=== PATIENT | female | born 1940 | race African-American/Black ===

== ENCOUNTER → 2017-08-10 | Day surgery (SDC) | payer OTHER ==
[2017-08-06 15:17] LABS: BASOPHILS % 0.3 % (0.0-1.0); EOSINOPHILS # (AUTO) 0.3 (0.0-0.4); HEMATOCRIT 35.2 % (34.2-44.1); HEMOGLOBIN 11.5 g/dL (12.0-16.0); LYMPHOCYTES # (AUTO) 1.8 (1.0-3.2); MEAN CORPUSCULAR HEMOGLOBIN 29.9 pg (28-32); MEAN CORPUSCULAR HGB CONC 32.7 g/dL (31-35); MEAN CORPUSCULAR VOLUME 91.7 fL (81-99); MONOCYTES # (AUTO) 0.7 (0.2-0.8); MONOCYTES % 11.8 % (4.4-11.3); NEUTROPHILS # (AUTO) 3.2 (2.1-6.9); NEUTROPHILS % 52.7 % (38.7-80.0); PLATELET COUNT 254 x10e3/uL (140-360); RED BLOOD COUNT 3.84 x10e6/uL (3.6-5.1); RED CELL DISTRIBUTION WIDTH 13.4 % (11.7-14.4)
[2017-08-06 15:33] LABS: ANION GAP 12.6 mmol/L (8-16); BLOOD UREA NITROGEN 16 mg/dL (7-26); BUN/CREATININE RATIO 15 (6-25); CALCIUM 9.5 mg/dL (8.4-10.2); CARBON DIOXIDE 28 mmol/L (22-29); CHLORIDE 104 mmol/L (98-107); CREATININE, SERUM 1.04 mg/dL (0.57-1.11); EST GLOMERULAR FILTRATION RATE > 60 ML/MIN (60-); GLUCOSE 78 mg/dL (74-118); POTASSIUM 4.6 mmol/L (3.5-5.1); SODIUM 140 mmol/L (136-145)
--- NOTE | 2017-08-06 16:41 | Diagnostic Imaging Report ---
PROCEDURE: X-RAY CHEST, TWO VIEWS COMPARISON: None. INDICATIONS: Preop. FINDINGS: LUNGS: The diaphragms are flat. No consolidations or edema. No mass. PLEURA: No effusions or pneumothorax. HEART \T\ MEDIASTINUM: The heart is within normal size-limits. The descending thoracic aorta is ectatic. BONES \T\ SOFT TISSUES: Mild scoliosis of the thoracolumbar spine with superimposed endplate degenerative changes. No focal osseous lesions. Soft tissues are unremarkable.. CONCLUSION: Pulmonary hyperinflation consistent with COPD. No acute cardiopulmonary process. Dictated by: Colleen Barbosa M.D. on 08/06/2017 at 16:44 Electronically approved by: Colleen Barbosa M.D. on 08/06/2017 at 16:44
[~2017-08-10] MED LIST: ASPIR 8181 MG PO; CEFAZOLIN SOD 2 GM/D5W 50ML 50 ML IV ONE; DEXAMETHASONE SOD PHOS INJ 4 MG/ML VIAL ONE; FENTANYL CITRATE/PF 100MCG/2 ML INJ ONE; GABAPENTIN100 MG PO; HYDROCHLOROTHIA25 MG PO; LIDOCAINE HCL 1% LOCAL INJ 20 ML VIAL ONE; LIDOCAINE HCL 2% LOCAL INJ 5 ML SDV VIAL INJ ONE; LORATADINE10 MG PO; LOSARTAN POTASS25 MG PO; MELOXICAM7.5 MG PO; MIDAZOLAM HCL 2 MG/2 ML VIAL ONE; ONDANSETRON HCL INJ 2 MG/ML VIAL ONE; PAROXETINE HCL20 MG PO; PROPOFOL IV EMULSION 10 MG/ML 20 ML VIAL ONE; SEVOFLURANE INHAL SOLN 250 ML PEN BTL ONE
--- OUTSIDE RECORDS SUMMARY | 2017-08-10 10:19 | XMS REPORT | Clinical Summary ---
Author Author [facility] Organization [facility] Address Unknown Phone Unavailable Care Team Providers Care Client [employer] Specialist Name Role Phone Nilton Veliz MD PCP Allergies Active Allergy Reactions Severity Noted Date Comments Penicillins Rash High 07/28/2016 Pt has a rash from zosyn Current Medications Prescription Sig. Disp. Refills Start End Date Status Date hydroCHLOROthiazide Take 25 mg by mouth once 0 07/10/19 Active (HYDRODIURIL) 25 MG daily. 17 tablet lidocaine-prilocaine Apply 1 application 07/17/19 Active (EMLA) 2.5-2.5 % cream topically 3 (three) times 17 a day. FOLIC Take 1 tablet by mouth Active ACID/MULTIVIT-MIN/LUTEIN every morning. (CENTRUM SILVER ORAL) [id number] Take 500 mg by mouth Active o-ast (MEGARED OMEGA-3 every morning. KRILL OIL) 691-826-12-64 mg capsule traMADol (ULTRAM) 50 mg Take 1 tablet (50 mg 30 tablet 0 08/03/19 tablet total) by mouth every 6 17 17 (six) hours as needed for moderate pain for up to 10 days. clindamycin (CLEOCIN) 300 Take 1 capsule (300 mg 30 capsule 0 08/13/19 MG capsule total) by mouth 3 (three) 17 17 times a day for 10 days. Active Problems Problem Noted Date Hypertension 08/01/2016 Bandemia 08/01/2016 Cellulitis of buttock, right 07/21/2016 Immunizations Name Dates Previously Given Next Due Tdap 07/21/2016 Social History Tobacco Use Types Packs/Day Years Used Date Never Smoker Alcohol Use Drinks/Week oz/Week Comments No Sex Assigned at Date Recorded Not on file Last Filed Vital Signs Not on file Plan of Treatment Health Maintenance Due Date Last Done Comments BREAST CANCER SCREENING 1992 COLON CANCER SCREENING 1992 SHINGRIX VACCINE (#1) 1992 ZOSTER VACCINE 2002 PNEUMOCOCCAL 07/02/2007 POLYSACCHARIDE VACCINE AGE 65 AND OVER PNEUMOCOCCAL-13 07/02/2007 INFLUENZA VACCINE 10/06/2017 Results Not on fileafter 08/09/2016 Insurance Payer Benefit Subscriber ID Type Phone Address Plan / Group [employer] xxxxxxxxx [facility] Home:
--- OUTSIDE RECORDS SUMMARY | 2017-08-10 10:19 | XMS REPORT ---
Author Author [facility] Address Unknown Phone Unavailable Care Team Providers Care Pari Mutuel Clerk Name Role Phone MAX TIRADO Unavailable Unavailable Problems This patient has no known problems. Allergies, Adverse Reactions, Alerts This patient has no known allergies or adverse reactions. Medications This patient has no known medications. Results Test Description Test Time Test Comments Text Results Atomic Results Result Comments CHEST 2 VIEWS [place] [address] Patient Name: SAHIL PINO MR #: [id number] : 1940 Age/Sex: 77/F Req #: [id number] Adm Physician: Ordered by: MAX TIRADO MD Report #: [id number] Location: OR Room/Bed: Procedure: DX/CHEST 2 VIEWS Exam Date: 08/06/17 Exam Time: 154 REPORT STATUS: Signed PROCEDURE: X-RAY CHEST, TWO VIEWS COMPARISON: None. INDICATIONS: Preop. FINDINGS: LUNGS: The diaphragms are flat. No consolidations or edema. No mass. PLEURA: No effusions or pneumothorax. HEART T MEDIASTINUM: The heart is within normal size-limits. The descending thoracic aorta is ectatic. BONES T SOFT TISSUES: Mild scoliosis of the thoracolumbar spine with superimposed endplate degenerative changes. No focal osseous lesions. Soft tissues are unremarkable.. CONCLUSION: Pulmonary hyperinflation consistent with COPD. No acute cardiopulmonary process. Dictated by: Alina Barbosa M.D. on 08/06/2017 at 16:44 Electronically approved by: Alina Barbosa M.D. on 08/06/2017 at 16:44 Dictated By: ALINA BARBOSA MD Transcribed By: DANNIE on 08/06/174 COPY TO: MAX TIRADO MD
--- NOTE | 2017-08-10 15:47 | Operative Report ---
DATE OF PROCEDURE: August 10, 2017 PREOPERATIVE DIAGNOSIS: Left breast mass. POSTOPERATIVE DIAGNOSIS: Left breast mass. PROCEDURE PERFORMED: Excision of left breast mass with needle localization. SILVERING DEPARTMENT SUPERVISOR: None. ANESTHESIA: General. INDICATIONS AND FINDINGS: Patient is a 77-year-old female, who was found have an abnormality in the left breast, which on biopsy was a papillary lesion with atypia. Surgery specimen x-ray confirmed removal of the mass and where the localizing clip was. TECHNIQUE: After adequate general anesthesia, placed in supine position, and the left breast was prepped and draped in sterile fashion with Adria solution. A transverse incision made in the area where the wire entered the breast. The wire was followed deeper into the breast tissue and the breast tissue around the area of the wire was completely excised. Specimen submitted for x-ray, which confirmed removal of the wire and the previously placed clip. Hemostasis was achieved with electrocautery. The wound was closed with 3-0 Vicryl in subcutaneous tissue and 4-0 Vicryl subcuticular to the skin. Dermabond and a sterile dressing were applied. The patient tolerated the procedure well. Estimated blood loss was 10 mL. There were no complications. All counts were correct. Patient was taken to the recovery room in satisfactory condition. Job#: [id number] DARI
--- NOTE | 2017-08-10 16:14 | Diagnostic Imaging Report ---
#[id number] - [id number] SPECIMEN: 08/10/2017 Correlation is made to exams dated: 08/10/2017 localization - [facility] and 07/22/2017 mammogram - [facility]. Specimen radiograph reveals the hookwire and the biopsy clip in the center of the soft tissues removed. IMPRESSION: SPECIMEN Successful mammographic needle localization. Johny Honeycutt Jr., D.O. cw/:08/10/2017 14:18:56 Newspaper Carrier: Zee Up RT(R)(M), [facility]
--- NOTE | 2017-08-10 16:14 | Diagnostic Imaging Report ---
#[id number] - [id number] NEEDLE LOCALIZATION: 08/10/2017 PROCEDURE DESCRIPTION: The patient had an ultrasoound guided biopsy of the left breast, at 3:00. Mammograms show a biopsy marker clip at the lesion location. Preoperative localization was requested. Written informed written consent was obtained from the patient, and a formal time out was taken to confirm patient identity and procedure to be perfomed. Using standard sterile technique, 1% lidocaine local anesthesia and mammographic guidance, the biopsy clip was preoperatively localized with a hookwire. Final CC and LM mammograms were obtained to document wire location. A sterile bandage was placed over the wire and the patient was transferred from mammography with no immediate complications noted. Correlation is made to exams dated: 07/22/2017 mammogram, 07/22/2017 ultrasound, 06/24/2017 ultrasound and 06/24/2017 mammogram - [facility]. IMPRESSION: NEEDLE LOCALIZATION Follow-up with ACR/ACS guidelines. Johny flores/mahamed:08/10/2017 14:16:31 Director Gift: Zee RIOS(R)(M), [facility] [id number]
== END | disposition home or self-care (01) ==
LOC: OR 10:17
PROVIDERS: ATTEND Surgery
DX: C50.912 Malignant neoplasm of unspecified site of left female breast (principal); Z17.0 Estrogen receptor positive status [ER+]; I49.3 Ventricular premature depolarization; E66.01 Morbid (severe) obesity due to excess calories; J45.909 Unspecified asthma, uncomplicated; I10 Essential (primary) hypertension; K57.90 Diverticulosis of intestine, part unspecified, without perforation or abscess without bleeding; Z01.810 Encounter for preprocedural cardiovascular examination; Z01.812 Encounter for preprocedural laboratory examination; Z01.818 Encounter for other preprocedural examination; Z79.82 Long term (current) use of aspirin; Z68.42 Body mass index [BMI] 45.0-49.9, adult
CPT/HCPCS: 19125; 19281; 36415; 71046; 76098; 80048; 85025; 88307; 93005; J1100; J2001 ×2; J2250; J2405; 88304